=== PATIENT | female | born 1950 | race Caucasian/White ===

== ENCOUNTER 2019-10-21 08:55 | Emergency (ER) | payer OTHER, BC ==
[~2019-10-21] VITALS: Ht 162.6 cm; Wt 95.3 kg
[2019-10-21] MEDS ORDERED: COZAAR100 MG (09:19)
[2019-10-21] MEDS ORDERED: SPIRONOLACTONE (09:19)
[2019-10-21] MEDS ORDERED: MEDROLPACK PO (10:45)
== END 2019-10-21 11:08 | disposition home or self-care (01) ==
LOC: ER 08:55
DX: S83.8X2A Sprain of other specified parts of left knee, initial encounter (principal); X50.9XXA Other and unspecified overexertion or strenuous movements or postures, initial encounter; Y93.89 Activity, other specified; Y92.488 Other paved roadways as the place of occurrence of the external cause; Y99.8 Other external cause status